=== PATIENT | female | born 1955 | race Caucasian/White ===

== ENCOUNTER 2024-03-08 10:48 | Outpatient (AMB) | payer MEDICARE, SELFPAY ==
--- NOTE | 2024-03-08 10:36 | A.OFFPC_ITS ---
Vital Signs 03/08/24 11:05 Height 5 ft 3.98 in Weight 198 lb 2 oz BMI 34.0 BP 128/80 Blood Pressure Location Lt brachial Position Sitting Pulse 70 Pulse Source Pulse Oximeter Pulse Oximetry (%) 97 Oxygen Delivery Method Room Air Intake Visit Reasons: [employer]/CALCIUM MEDS/CHOLESTOROL ISSUES Intake Note: New patient visit Technology Sales Representative Required: No Allergies No Known Allergies [No Known Allergies*] Allergy (Verified 03/08/24 10:37) Tobacco use date assessed: 03/08/24 Fall risk assessment: No Falls in past year Last assessed Fall Risk: 03/08/24 Dental Screening Dental Screen Date: 03/08/24 Did you have a dental visit in the last 12 months?: Yes Did you have a dental problem in the last 6 months where you did not have access to dental care?: No Was dental information given to patient?: Patient has dentist HPI HPI Comments History of Present Illness Details 68 year old female with past medical his tory of hyperlipidemia, hypothyroid, ,obesity, anxiety & depression presenting to [facility] care. Transfer from [facility] CV: Hyperlipidemia-On statin therapy Hypothyroid: On levothyroxine Osteopenia: On calcium and vitamin D Preventive Mammo 12/09/2023 Colonoscopy 01/2028 ROS CONSTITUTIONAL: Denies weight loss, fever and chills. HEENT: Denies changes in vision and hearing. RESPIRATORY: Denies SOB and cough. CV: Denies palpitations and CP GI: Denies abdominal pain, nausea, vomiting and diarrhea. : Denies dysuria and urinary frequency. MSK: Denies new myalgia and joint pain. SKIN: Denies rash and pruritus. NEUROLOGICAL: Denies headache PSYCHIATRIC: Denies recent changes in mood. PHYSICAL EXAM: GENERAL: Alert and oriented x 3. NAD EYES: EOMI. Anicteric. HENT: Moist mucous membranes. No scleral icterus. No cervical lymphadenopathy. LUNGS: Clear to auscultation bilaterally. CARDIOVASCULAR: Regular rate and rhythm. No murmur. No JVD. ABDOMEN: Soft, non-tender +bs EXTREMITIES: No edema. Non-tender. SKIN: No rashes or lesions. Warm. NEUROLOGIC: No focal neurological deficits. CN II-XII grossly intact PSYCHIATRIC: Cooperative. Appropriate mood and affect [facility] Surgical History No pertinent past surgical history Family History Mother Heart disease Maternal Aunt Heart disease Maternal Uncle Heart disease Other FH: mental illness Substance abuse Social History Housing: House Alcohol intake: current Patient Tobacco Use Status: Never used Tobacco e-Cigarette/Vaping Use: Never Used Second Hand Smoke Exposure: No service: No Current occupational status: retired Cognitive needs: No Hearing needs: No Vision needs: No Questionnaire AUDIT C Alcohol Use Questionnaire (AUDIT-C) 1. How often do you have a drink containing alcohol?: 2-4 times a month 2. How many drinks containing alcohol do you have on a typical day when you are drinking?: 3 or 4 3. How often do you have six or more drinks on one occasion?: Never Total Score: 3 Physical exam (Primary Care) Vital Signs: Last Vital Signs Pulse 70 03/08/24 11:05 BP 128/80 03/08/24 11:05 Pulse Ox 97 03/08/24 11:05 Oxygen Delivery Method Room Air 03/08/24 11:05 BMI result Body Mass Index 34.0 Tobacco/Smoking Status: Tobacco use Status Tobacco use date assessed 03/08/24 03/08/24 10:38 Patient Tobacco Use Status Never used Tobacco 03/08/24 11:04 e-Cigarette/Vaping Use Never Used 03/08/24 11:04 Coding Level of Care Code New Pt Level 4 (10673) Diagnoses Encounter to establish care Z76.89 Hypothyroidism, unspecified type E03.9 Hypothyroidism type: unspecified Mixed hyperlipidemia E78.2 Hyperlipidemia type: mixed hyperlipidemia Assessment & Plan Assessment & Plan (1) Encounter to establish care: Code(s): Z76.89 - Persons encountering health services in other specified circumstances Category: Medical Plan: 68 year old to establish care. Past medical, surgical,social and family history reviewed. (2) Hypothyroid: Code(s): E03.9 - Hypothyroidism, unspecified Category: Medical Qualifiers: Hypothyroidism type: unspecified Qualified Code(s): E03.9 - Hypothyroidism, unspecified Plan: clinically and biochemically euthyroid (3) Hyperlipidemia: Code(s): E78.5 - Hyperlipidemia, unspecified Category: Medical Qualifiers: Hyperlipidemia type: mixed hyperlipidemia Qualified Code(s): E78.2 - Mixed hyperlipidemia Plan: Elevated cholesterol. continue statin therapy
[2024-03-08 11:05] VITALS: BP 128/80; PULSE 70; O2SAT 97; BMI 34.0
== END 2024-03-08 11:44 | disposition home or self-care (01) ==
PROVIDERS: PCP Internal Medicine; Visit Provider Internal Medicine
DX: Z76.89 Persons encountering health services in other specified circumstances (principal); E03.9 Hypothyroidism, unspecified; E78.2 Mixed hyperlipidemia

== ENCOUNTER → 2024-03-08 10:48 | Outpatient (BNVA) | payer MEDICARE, SELFPAY | PROVIDERS: PCP Internal Medicine; Visit Provider Internal Medicine | DX: E03.9 Hypothyroidism, unspecified (principal); E78.2 Mixed hyperlipidemia; Z76.89 Persons encountering health services in other specified circumstances | CPT/HCPCS: 99202 ==

== ENCOUNTER 2024-11-08 16:08 | Outpatient (AMB) | payer MEDICARE, SELFPAY ==
[2024-11-08 16:20] VITALS: BP 120/76; PULSE 83; RESP 14; O2SAT 98; BMI 32.8
--- NOTE | 2024-11-08 16:20 | MHC.PC.OV ---
Vital Signs 11/08/24 16:20 Height 5 ft 3.98 in Weight 191 lb 2 oz BMI 32.8 BP 120/76 Blood Pressure Location Lt brachial Position Sitting Respiration 14 Pulse 83 Pulse Source Pulse Oximeter Pulse Oximetry (%) 98 Oxygen Delivery Method Room Air Intake Visit Reasons: cpe Intake Note: Physical State Game Protector Required: No Allergies No Known Allergies (No Known Allergies*) Allergy (Verified 11/08/24 16:20) Tobacco use date assessed: 11/08/24 Fall risk assessment: No Falls in past year Last assessed Fall Risk: 11/08/24 Dental Screening Dental Screen Date: 11/08/24 Did you have a dental visit in the last 12 months?: Yes Did you have a dental problem in the last 6 months where you did not have access to dental care?: No Was dental information given to patient?: Patient has dentist HPI HPI Comments History of Present Illness Details 68 year old female with past medical history of hyperlipidemia, hypothyroid, obesity, anxiety & depression presenting for annual exam CV: Hyperlipidemia-On statin therapy Hypothyroid: On levothyroxine. Labs ordered Osteopenia: On calcium and vitamin D Preventive Mammo 12/09/2023. scheduled for [facility] Colonoscopy due 01/2028August 2024 Tdap (dog bite) Due for pneumonia, shingrix ROS CONSTITUTIONAL: Denies weight loss, fever and chills. HEENT: Denies changes in vision and hearing. RESPIRATORY: Denies SOB and cough. CV: Denies palpitations and CP GI: Denies abdominal pain, nausea, vomiting and diarrhea. : Denies dysuria and urinary frequency. MSK: Denies new myalgia and joint pain. SKIN: Denies rash and pruritus. NEUROLOGICAL: Denies headache PSYCHIATRIC: Denies recent changes in mood. PHYSICAL EXAM: GENERAL: Alert and oriented x 3. NAD EYES: EOMI. Anicteric. HENT: Moist mucous membranes. No scleral icterus. No cervical lymphadenopathy. LUNGS: Clear to auscultation bilaterally. CARDIOVASCULAR: Regular rate and rhythm. No murmur. No JVD. ABDOMEN: Soft, non-tender +bs EXTREMITIES: No edema. Non-tender. SKIN: No rashes or lesions. Warm. NEUROLOGIC: No focal neurological deficits. CN II-XII grossly intact PSYCHIATRIC: Cooperative. Appropriate mood and affect [facility] Surgical History No pertinent past surgical history Family History Mother Heart disease Maternal Aunt Heart disease Maternal Uncle Heart disease Other FH: mental illness Substance abuse Social History Housing: House Alcohol intake: current Patient Tobacco Use Status: Never used Tobacco e-Cigarette/Vaping Use: Never Used Second Hand Smoke Exposure: No service: No Current occupational status: retired Cognitive needs: No Hearing needs: No Vision needs: No Questionnaire Thrive Questionnaire Date Thrive assessed: 11/01/24 I am a: Patient What is your living situation today?: I have a steady place to live Within the past 12 months, did the food you bought not last and you didn't have the money to get more?: Never true Within the past 12 months, did you worry whether your food would run out before you got money to buy more?: Never true Do you have trouble paying for medicines?: No Do you have trouble getting transportation to medical appointments?: No Do you have trouble paying your heating and electricity bill?: No Do you have trouble taking care of your child, family member or friend?: No Do you have trouble with day-to-day activities such as bathing, preparing meals, shopping, managing finances, etc.?: No Are you currently unemployed and looking for a job?: No Are you interested in more education?: No Please select the resources that you would like help with: None Currently or been in a relationship where the following occur: No concerns reported THRIVE Score: 0 AUDIT C Alcohol Use Questionnaire (AUDIT-C) 1. How often do you have a drink containing alcohol?: 2-3 times a week 2. How many drinks containing alcohol do you have on a typical day when you are drinking?: 1 or 2 3. How often do you have six or more drinks on one occasion?: Never Total Score: 3 CYNTHIA-7 AMB Questionnaire CYNTHIA-7 Feeling nervous, anxious, or on edge: 0 = Not at all Not being able to stop or control worryin = Not at all Worrying too much about different things: 0 = Not at all Trouble relaxin = Not at all Being so restless that it is hard to sit still: 0 = Not at all Becoming easily annoyed or irritable: 0 = Not at all Feeling afraid as if something awful might happen: 0 = Not at all Total CYNTHIA-7 score (0-4 normal; 5-9 mild; 10-14 moderate; 15-21 severe): 0 Source: Developed by Drs. Pacheco Gibson, Lela Gibbs, Jonh Rosas and colleagues, with an educational mirza from [employer]. Physical exam (Primary Care) Tobacco/Smoking Status: Tobacco use Status Tobacco use date assessed 03/08/24 03/08/24 10:38 Patient Tobacco Use Status Never used Tobacco 03/08/24 11:04 e-Cigarette/Vaping Use Never Used 03/08/24 11:04 Thrive Assessment: Date of Thrive Assessment Date Thrive assessed 11/01/24 11/01/24 13:12 Currently or been in a relationship where the following occur: No concerns reported Coding Level of Care Code Est Pt Prev Care >65y(99791) Diagnoses Mixed hyperlipidemia E78.2 Hyperlipidemia type: mixed hyperlipidemia Hypothyroidism, unspecified type E03.9 Hypothyroidism type: unspecified Physical exam Z00.00 Assessment & Plan Assessment & Plan (1) Hyperlipidemia: Code(s): E78.5 - Hyperlipidemia, unspecified Category: Medical Qualifiers: Hyperlipidemia type: mixed hyperlipidemia Qualified Code(s): E78.2 - Mixed hyperlipidemia (2) Hypothyroid: Code(s): E03.9 - Hypothyroidism, unspecified Category: Medical Qualifiers: Hypothyroidism type: unspecified Qualified Code(s): E03.9 - Hypothyroidism, unspecified (3) Physical exam: Code(s): Z00.00 - Encounter for general adult medical examination without abnormal findings Plan CPE Interval history reviewed Labs ordered Discussed preventive measures for age mammo order given-gets at [facility] Orders: Orders MM screening mammo BI Today Z12.31 - Encounter for screening mammogram for malignant neoplasm of breast Complete Blood Count Auto Diff Today E03.9 - Hypothyroidism, unspecified, E78.2 - Mixed hyperlipidemia, Z13.0 - Encounter for screening for diseases of the blood and blood-forming organs and certain disorders involving the immune mechanism, Z13.228 - Encounter for screening for other metabolic disorders Comprehensive Met. Panel Today E03.9 - Hypothyroidism, unspecified, E78.2 - Mixed hyperlipidemia, Z13.0 - Encounter for screening for diseases of the blood and blood-forming organs and certain disorders involving the immune mechanism, Z13.228 - Encounter for screening for other metabolic disorders Lipid Panel Today E03.9 - Hypothyroidism, unspecified, E78.2 - Mixed hyperlipidemia, Z13.0 - Encounter for screening for diseases of the blood and blood-forming organs and certain disorders involving the immune mechanism, Z13.228 - Encounter for screening for other metabolic disorders TSH reflex Free T4 Today E03.9 - Hypothyroidism, unspecified, E78.2 - Mixed hyperlipidemia, Z13.0 - Encounter for screening for diseases of the blood and blood-forming organs and certain disorders involving the immune mechanism, Z13.228 - Encounter for screening for other metabolic disorders Hemoglobin A1c Today E03.9 - Hypothyroidism, unspecified, E78.2 - Mixed hyperlipidemia, Z13.0 - Encounter for screening for diseases of the blood and blood-forming organs and certain disorders involving the immune mechanism, Z13.228 - Encounter for screening for other metabolic disorders
--- OUTSIDE RECORDS SUMMARY | 2024-11-08 16:51 | XMS_ITS ---
Author Name [facility] Organization Unknown Care Team Organization Name Specialty Phone Email Start Date End Da te [facility] Ban Ma DO Primary Care 11/13/202210/07 [facility] Paras Roper Primary Care 01/14/2022 10/26/2023
--- OUTSIDE RECORDS SUMMARY | 2024-11-08 16:51 | XMS_ITS | Clinical Summary ---
Author Organization Patient Business Ser [facility] Address [address] [place] [address] Care Team Providers Care Quality Assurance Tester Name Role Phone Shadia Graham MD Primary Care Provider [phone] Surgical History Surgery Date Site/Laterality Comments COLONOSCOPY 10/26/07 PROCEDURE: [place] COLONOSCOPY STOMA DX INCLUDING COLLJ SPEC SPX; COMMENT: Up to cecum, regular preparation, normal colon exam OTHER SURGICAL HISTORY PROCEDURE: [place] ELECTROCONVULSIVE THERAPY; COMMENT: For anxiety/depression (had 6-8 treatments in [place]) OTHER SURGICAL HISTORY 11/2014 PROCEDURE: RADIATION TREATMENT DELIVERY; COMMENT: for hyperthyroidism Medical History Medical History Date Comments Anxiety 11/11/2013 DX:Anxiety Graves disease 10/21/2015 DX:Graves diseas e Hypercholesterolemia 06/10/2017 DX:Hypercho lesterolemia Hypothyroidism (acquired) 07/12/2016 DX:Hyp othyroidism (acquired) Major depressive disorder, s darien episode, moderate (CMS/HCC V24, CMS/HCC V28) 01/26/2014 DX:Major depressiv e disorder, single episode, moderate ([facility]) Obesity (BMI 30.0-34.9) 08/17/2014 DX:Obesi ty (BMI 30.0-34.9) Family History Medical History Relation Name Comments Coronary artery disease Aunt maternal [place] a ge -70 Bipolar disorder Brother 1 depression Bipolar disorder Brother 2 suicide Asthma Brother 3 Stroke Father age 88 Lung cancer Maternal Grandfather uncle, PGM Coronary artery disease Maternal Grandmother age 58 Stroke Mother HTN, age 78, de ceased age 93 Depression Other brothers commit [place] suicide; hx of bipolar Emphysema Paternal Grandfather Heart attack Uncle 1 age 59, guerita l Heart attack Uncle 2 at age 65, maternal Breast cancer Neg Hx Colon cancer Neg Hx Ovarian cancer Neg Hx Uterine cancer Neg Hx Relation Name Status Comments Aunt maternal Brother 1 Alive Brother 2 Brother 3 Alive Father Maternal Grandfather Maternal Grandmother Mother Other Paternal Grandfather Paternal Grandmother Uncle 1 Uncle 2 Social History Tobacco Use Types Packs/Day Years Used Date Smoking Tobacco: Never Smokeless Tobacco: Never Alcohol Use Standard Drinks/Week Comments Yes 0 (1 standard drink = 0.6 oz pur e alcohol) Comments Unknown Sex and Gender Information Value Date Recorded Sex Assigned at Not on file Legal Sex Female 7:32 AM EDT Gender Identity Not on file Sexual Orientation Not on file Obstetrics History Last Filed Vital Signs Vital Sign Reading Time Taken Comments Blood Pressure 128/72 12/03/2023 8:50 AM EDT Pulse 68 12/03/2023 8:50 AM EDT Temperature - - Respiratory Rate - - Oxygen Saturation - - Inhaled Oxygen Concentration - - Weight 88.2 kg (194 lb 6.4 oz) 12/03/2023 8:50 A M EDT Height 162.6 cm (5' 4 ) 12/03/2023 8:50 AM EDT Body Mass Index 33.37 12/03/2023 8:50 AM EDT Plan of Treatment Upcoming Encounters Date Type Department Care Team ([facility] st Contact Info) Description 12/29/2024 9:40 AM EDT Appointment Radiology Department [address] [phone] Health Maintenance Due Date Last Done Comments Zoster Vaccines (1 of 2) 07/31/2007 Cholesterol Screening (Lipid Panel) 09/25/2021 Colorectal Cancer Screening: Colonoscopy 09/25/2021 Hepatitis C Screening 09/25/2021 Medicare Annual Wellness Visit 09/25/2021 Social Influencers of Health Screening 09/25/2021 Falls Risk Assessment 2022 COVID-19 Vaccine ( season) 2023 03/14/2021, 06/25/2020, 06/04/2020 Depression Screening 03/09/2024 Influenza Vaccine (#1) 2024 , 12/01/2022, 11/22/2021, Additional history exists Breast Cancer Screening 12/07/2025 12/08/19, 12/08/2023, 11/26/2022, Additional history exists DTaP,Tdap,and Td Vaccines (3 - Td or Tdap) 11/23/2031 11/22/2021, 07/10/2010 RSV Immunization Adult Patients (1 - 1-dose 75+ series) 2032 Osteoporosis Screening (Bone Density Screening) 02/02/2033 02/02/2023 Pneumococcal Vaccine: 50+ Years Completed 12/01/2022 HIB Vaccines Aged Out No longer eligi ble based on patient's age to complete this topic HPV Vaccines Aged Out No longer eligi ble based on patient's age to complete this topic Hepatitis A Vaccines Aged Out No long er eligible based on patient's age to complete this topic Hepatitis B Vaccines Aged Out No long er eligible based on patient's age to complete this topic IPV Vaccines Aged Out No longer eligi ble based on patient's age to complete this topic MMR Vaccines Aged Out No longer eligi ble based on patient's age to complete this topic Meningococcal ACWY Vaccine Aged Out N o longer eligible based on patient's age to complete this topic Meningococcal B Vaccine Aged Out No l onger eligible based on patient's age to complete this topic RSV Immunization Patients Under 20 months Aged Out No longer eligible based on patient's age to complete this topic Varicella Vaccines Aged Out No longer eligible based on patient's age to complete this topic Procedures Procedure Name Priority Date/Time Associated Diagnosis Comments SCREENING MAMMOGRAPHY BI 2-VIEW BREAST INC CAD Routine 12/08/2023 9:23 AM EDT Encounter for screening mammogram for malignant neoplasm of breast DXA BONE DENSITY STUDY 1+ SITS AXIAL SKEL Routine 02/02/2023 11:32 AM EST Encounter for screening for osteoporosis from Last 3 Months or Most Recently Relevant to Health Maintenance Results * SCREENING MAMMOGRAPHY BI 2-VIEW BREAST INC CAD (12/08/2023 9:23 AM EDT) Anatomical Region Laterality Modality Radiographic Isabelle ging 11/26/2022 5:00 PM EDT Narrative 12/08/2023 6:55 PM EDT This is a summary report. The complete report is available in the patient's medical record. If you cannot access the medical record, please contact the sending organization for a detailed fax or copy. Exam: Screening mammogram Findings: Digital bilateral full-field screening mammography is performed with tomosynthesis and interpreted with the aid of computer-aided detection. Comparison is made with 11/26/2022 and as far back as 11/04/2019. Breast parenchyma is composed of scattered fibroglandular densities. No new suspicious mass, architectural distortion, or suspicious calcifications. Impression: No mammographic evidence of malignancy. BI-RADS 1 - negative [address] [id number] Procedure Note Ankita Jenkins MD - 01/05/2024 This is a summary report. The complete report is available in thepatient's medical record. If you cannot access the medical record, pleasecontact the sending organization for a detailed fax or copy. Exam: Screening mammogram Findings: Digital bilateral full-field screening mammography is performedwith tomosynthesis and interpreted with the aid of computer-aideddetection. Comparison is made with 11/26/2022 and as far back as11/04/2019. Breast parenchyma is composed of scattered fibroglandular densities. Nonew suspicious mass, architectural distortion, or suspiciouscalcifications. Impression: No mammographic evidence of malignancy. BI-RADS 1 - negative [address] [address] us Ban Ma DO IMG XR PROCEDURES Final Result * DXA BONE DENSITY STUDY 1+ SITS AXIAL SKEL (02/02/2023 11:32 AM EST) Anatomical Region Laterality Modality Bone Densitometr y 12/01/2022 10:2 2 AM EDT Narrative 02/02/2023 7:13 PM EST BONE DENSITY SCAN (DEXA): FINDINGS: Lumbar Spine T-score is -0.7. (SD relative to 20-29 y/o adult) Z-score is 1.1. (SD relative to age matched peers) This is considered normal by WHO criteria. Left Hip T-score is -2.3. Z-score is -0.7. This is considered osteopenia by WHO criteria. Comparison exam(s): 01/24/2009. 18.6% loss of left hip bone mineral density and 7.2% loss of lumbar spine bone mineral density, both statistically significant at the 95% confidence level. IMPRESSION: IMPRESSION: Osteopenia by WHO criteria. This patient has an 11% risk of major osteoporotic fracture and a 2.0% risk of hip fracture over the next 10 years. (World Health Organization Fracture Risk Assessment) [facility] Department of Internal Medicine recommends using National Osteoporosis Foundation (NOF) guidelines in treatment decisions related to osteoporosis. NOF guidelines suggest considering treatment for postmenopausal women and men aged 50 or older presenting with the following: History of hip or vertebral fracture. T-score = -2.5 (DXA) at the femoral neck, total hip, or spine, after appropriate evaluation to exclude secondary causes. Low bone mass (T-score between -1.0 and -2.5 at the femoral neck or spine) AND a 10-year probability of a hip fracture = 3% OR a 10-year probability of a major osteoporosis-related fracture = 20% based on the [place]-adapted WHO algorithm Please note that all treatment decisions require clinical judgment and consideration of individual patient factors, including patient preferences, co-morbidities, previous drug use, risk factors not captured in the FRAX model (e.g., frailty, falls, vitamin D deficiency, increased bone turnover, interval significant decline in bone density) and possible under- or over-estimation of fracture risk by FRAX. Optional alternative screening schedule based on janes Clinton., [facility] March 27, 2011 for patients with osteopenia (based on hip BMD T-score) is as follows: * advanced osteopenia (T scores -2.00 to -2.49), BMD testing every year * moderate osteopenia (T scores -1.50 to -1.99), BMD testing every 5 years mild osteopenia or normal BMD (T scores -1.50 and higher), BMD testing every 15 years Procedure Note Ankita Jenkins MD - 04/14/2023 BONE DENSITY SCAN (DEXA): FINDINGS: Lumbar Spine T-score is -0.7. (SD relative to 20-29 y/o adult) Z-score is 1.1. (SD relative to age matched peers) This is considered normal by WHO criteria. Left Hip T-score is -2.3. Z-score is -0.7. This is considered osteopenia by WHO criteria. Comparison exam(s): 01/24/2009. 18.6% loss of left hip bone mineraldensity and 7.2% loss of lumbar spine bone mineral density, both statistically significant at the95% confidence level. IMPRESSION: IMPRESSION: Osteopenia by WHO criteria. This patient has an 11% risk of majorosteoporotic fracture and a 2.0% risk of hip fracture over the next 10 years. (World HealthOrganization Fracture Risk Assessment) [facility] Department of Internal Medicine recommendsusing National Osteoporosis Foundation (NOF) guidelines in treatment decisions related toosteoporosis. NOF guidelines suggest considering treatment for postmenopausal women and menaged 50 or older presenting with the following: History of hip or vertebral fracture. T-score = -2.5 (DXA) at the femoral neck, total hip, or spine, afterappropriate evaluation to exclude secondary causes. Low bone mass (T-score between -1.0 and -2.5 at the femoral neck or spine)AND a 10-year probability of a hip fracture = 3% OR a 10-year probability of a majorosteoporosis-related fracture = 20% based on the [place]-adapted WHO algorithm Please note that all treatment decisions require clinical judgment andconsideration of individual patient factors, including patient preferences, co- morbidities,previous drug use, risk factors not captured in the FRAX model (e.g., frailty, falls, vitaminD deficiency, increased bone turnover, interval significant decline in bone density) andpossible under- or over-estimation of fracture risk by FRAX. Optional alternative screening schedule based on janes Clniton., NEJJanuary 2011 for patients with osteopenia (based on hip BMD T-score) is as follows: * advanced osteopenia (T scores -2.00 to -2.49), BMD testing every year * moderate osteopenia (T scores -1.50 to -1.99), BMD testing every 5years mild osteopenia or normal BMD (T scores -1.50 and higher), BMD testingevery 15 years Shavonne CRUZ IMG DXA PROCEDURES Fi nal Result from Last 3 Months or Most Recently Relevant to Health Maintenance Insurance MEDICARE Care Teams Quality Assurance Tester Relationship Specialty Start Date End Date Shadia Graham MD PCP - General Internal Medicine 08/11/24
== END 2024-11-08 16:45 | disposition home or self-care (01) ==
LOC: HO.HMCFM 16:09
PROVIDERS: PCP Internal Medicine; Visit Provider Internal Medicine
DX: E78.2 Mixed hyperlipidemia (principal); E03.9 Hypothyroidism, unspecified

== ENCOUNTER → 2024-11-08 16:08 | Outpatient (BNVA) | payer MEDICARE, SELFPAY | PROVIDERS: PCP Internal Medicine; Visit Provider Internal Medicine | DX: Z00.00 Encounter for general adult medical examination without abnormal findings (principal); E78.2 Mixed hyperlipidemia; E03.9 Hypothyroidism, unspecified; F41.1 Generalized anxiety disorder; Z79.899 Other long term (current) drug therapy | CPT/HCPCS: 99212 ==

== ENCOUNTER 2024-11-09 08:25 | Outpatient (REF) | payer MEDICARE, SELFPAY ==
--- OUTSIDE RECORDS SUMMARY | 2024-11-09 08:51 | XMS_ITS | Clinical Summary ---
Author Organization Patient Business Ser [facility] Address [address] [place] [address] Care Team Providers Care Environmental Services Attendant Name Role Phone Shadia Graham MD Primary Care Provider [phone] Surgical History Surgery Date Site/Laterality Comments COLONOSCOPY 10/26/07 PROCEDURE: [place] COLONOSCOPY STOMA DX INCLUDING COLLJ SPEC SPX; COMMENT: Up to cecum, regular preparation, normal colon exam OTHER SURGICAL HISTORY PROCEDURE: [place] ELECTROCONVULSIVE THERAPY; COMMENT: For anxiety/depression (had 6-8 treatments in [place]) OTHER SURGICAL HISTORY 11/2014 PROCEDURE: RADIATION TREATMENT DELIVERY; COMMENT: for hyperthyroidism Medical History Medical History Date Comments Anxiety 11/11/2013 DX:Anxiety Graves disease 10/21/2015 DX:Graves diseas e Hypercholesterolemia 06/10/2017 DX:Hypercho lesterolemia Hypothyroidism (acquired) 07/12/2016 DX:Hyp othyroidism (acquired) Major depressive disorder, s darien episode, moderate (CMS/HCC V24, CMS/HCC V28) 01/26/2014 DX:Major depressiv e disorder, single episode, moderate ([facility]) Obesity (BMI 30.0-34.9) 08/17/2014 DX:Obesi ty (BMI 30.0-34.9) Family History Medical History Relation Name Comments Coronary artery disease Aunt maternal [place] a ge -70 Bipolar disorder Brother 1 [...] Upcoming Encounters Date Type Department Care Team ([facility] st Contact Info) Description 12/29/2024 9:40 AM EDT Appointment Radiology Department [address] [phone] Health Maintenance Due Date Last Done Comments [...] evidence of malignancy. BI-RADS 1 - negative [address] [address] Procedure Note Ankita Jenkins MD - 01/05/2024 [...] evidence of malignancy. BI-RADS 1 - negative [address] [address] [place] Ban Ma DO IMG XR PROCEDURES [...] (World Health Organization Fracture Risk Assessment) [facility] Department of Internal Medicine recommends using [...] alternative screening schedule based on janes Clinton., [facility] March 27, 2011 for patients with osteopenia [...] years. (World HealthOrganization Fracture Risk Assessment) [facility] Department of Internal Medicine recommendsusing National [...] alternative screening schedule based on janes Clinton., NEJJanuary 2011 for patients with osteopenia (based [...] to Health Maintenance Insurance MEDICARE Care Teams Environmental Services Attendant Relationship Specialty Start Date End Date Shadia Graham MD PCP - General Internal Medicine 08/11/24
[2024-11-09 11:25] LABS: MANUAL DIFF FLAG NO
[2024-11-09 11:44] LABS: Hematocrit 42.8 % (37.0-47.0); Hemoglobin 14.3 g/dl (12.0-16.0); Imm Gran Abs Auto 0.01 X10*3/uL (0.00-0.03); Imm Gran Pct Auto 0.2 % (0.0-0.4); Lymphocytes Absolute Auto 1.4 X10*3/uL (1.2-4.9); Mean Corpuscular HGB Conc 33.4 g/dl (31.0-35.0); Mean Corpuscular Hemoglobin 28.7 pg (27.0-33.0); Mean Corpuscular Volume 85.8 fL (80.0-98.0); NRBC Abs Auto 0.000 X10*3/uL (0.0-0.012); NRBC Pct Auto 0.0 /100WBC (0.0-0.2); Platelet Count 275 X10*3/uL (160-400); Red Blood Count 4.99 X10*6/uL (4.20-5.50); White Blood Count 4.8 X10*3/uL (4.8-10.8)
[2024-11-09 11:50] LABS: Hemoglobin A1C 123.6897 umol/L; Total Hemoglobin (HGBA1C) 3643.6360 umol/L
[2024-11-09 12:11] LABS: Alanine Aminotransferase 19 U/L (0-31); Albumin Level 4.7 g/dL (3.5-5.0); Alkaline Phosphatase 76 U/L (39-117); Anion Gap 12 (12-20); Aspartate Amino Transferase 20 U/L (5-31); Blood Urea Nitrogen 17 mg/dL (9-16); Calcium 9.7 mg/dL (8.4-10.2); Carbon Dioxide 29 mmol/L (22-29); Chloride 104 mmol/L (96-108); Cholesterol 174 mg/dL (<200); Estimated Glomerular Filt Rate 57; HDL Cholesterol 51 mg/dL (>40); Potassium 4.5 mmol/L (3.3-5.1); Sodium 140 mmol/L (135-145); Total Protein 7.4 g/dL (6.5-8.0); Triglycerides 114 mg/dL (<150)
[2024-11-09 13:05] LABS: Free T4 (Free Thyroxine) 1.31 ng/dL (0.71-1.85)
== END 2024-11-09 08:26 | disposition home or self-care (01) ==
LOC: HO.WFDLDS 08:25
PROVIDERS: Visit Provider Internal Medicine
DX: Z13.228 Encounter for screening for other metabolic disorders (principal); Z13.0 Encounter for screening for diseases of the blood and blood-forming organs and certain disorders involving the immune mechanism; E78.2 Mixed hyperlipidemia; E03.8 Other specified hypothyroidism; Z13.1 Encounter for screening for diabetes mellitus
CPT/HCPCS: 36415; 80053; 80061; 83036; 84439; 84443; 85025